=== PATIENT | male | born 1950 | race Caucasian/White ===

== ENCOUNTER 2017-07-12 08:34 | Day surgery (SDC) | payer MEDICARE ==
[2017-07-12] MEDS ORDERED: Lactated Ringers 1,000 ML IV SCH (08:45)
[2017-07-12] MEDS ORDERED: Midazolam 1 MG/ML 2 ML SDV IV ONE (09:56)
[2017-07-12] MEDS ORDERED: Propofol 200 MG/20 ML SDV IV ONE (09:56)
[2017-07-12] MEDS ORDERED: Simethicone Drops 40 MG/0.6 ML 30 ML Bottle ONE (10:08)
--- NOTE | 2017-07-12 10:38 | PCM.OPNOTE ---
- General Post-Op/Procedure Note Date of Surgery/Procedure: 07/12/17 Operative Procedure(s): c scope with bx hot loop snare and cold forceps Findings: transverse colon polyp rectal polyps x2 sigmoid diverticulosis Pre Op Diagnosis: rectal pain Post-Op Diagnosis: transverse colon polyp. rectal polyps x2. sigmoid diverticulosis Anesthesia Technique: MAC Primary Surgeon: Timothy Rob Anesthesia Provider: Kim Villalobos Pathology: transverse colon polyp rectal polyps x2 Complications: None Condition: Good Free Text/Narrative:: see dictation
[2017-07-12 11:19] VITALS: BP 117/59
--- NOTE | 2017-07-12 12:56 | OR ---
DATE OF OPERATION: 07/12/2017 SURGEON: Timothy Rob MD PROCEDURE PERFORMED: Colonoscopy with cold forceps and hot loop snare biopsy. PREOPERATIVE DIAGNOSIS: Perirectal discomfort. POSTOPERATIVE DIAGNOSIS: Sigmoid diverticulosis, transverse colon polyp, and rectal polyp x2. INDICATIONS FOR PROCEDURE: This is a 67-year-old white male who is referred with the above-mentioned complaints. He was offered and accepted colonoscopy as part of a workup. DESCRIPTION OF PROCEDURE: After an excellent IV sedation was administered, digital rectal exam was performed. No marked abnormality was noted. Flexible colonoscope using was inserted and advanced to the cecum without difficulty. The following findings were noted: Ascending colon, unremarkable. Transverse colon; at the proximal transverse colon a small polypoid lesion, biopsied with cold biopsy forceps and sent for permanent. Descending colon, unremarkable. Sigmoid, scattered diverticulosis. Rectum; polyps x2, and these were biopsied and retrieved with a hot loop snare biopsy. Colon was deflated as the scope was removed. The patient tolerated the procedure well, was taken to recovery room in good condition. /[id number] /KARLAL
== END 2017-07-12 11:23 | disposition home or self-care (01) ==
LOC: FB.SDS 08:34
PROVIDERS: ATTEND Surgery
DX: D12.3 Benign neoplasm of transverse colon (principal); K62.1 Rectal polyp; K57.30 Diverticulosis of large intestine without perforation or abscess without bleeding; E11.9 Type 2 diabetes mellitus without complications; I10 Essential (primary) hypertension; I25.10 Atherosclerotic heart disease of native coronary artery without angina pectoris; E78.5 Hyperlipidemia, unspecified; E66.9 Obesity, unspecified; F41.9 Anxiety disorder, unspecified; I25.2 Old myocardial infarction; Z79.84 Long term (current) use of oral hypoglycemic drugs; Z79.82 Long term (current) use of aspirin; Z79.899 Other long term (current) drug therapy; Z95.1 Presence of aortocoronary bypass graft; F17.210 Nicotine dependence, cigarettes, uncomplicated; Z68.37 Body mass index [BMI] 37.0-37.9, adult
CPT/HCPCS: 00811; 45380; 45385; 82962; 88305; 93005; A9270; J2250; J2704; J7120

== ENCOUNTER 2017-07-28 13:31 | Emergency (ER) | payer MEDICARE ==
--- NOTE | 2017-07-28 13:54 | EDM.PDOC ---
ED HPI GENERAL MEDICAL PROBLEM - General Stated Complaint: UA Time Seen by Provider: 07/28/17 13:31 Source of Information: Reports: Patient, Family History Limitations: Reports: No Limitations - History of Present Illness INITIAL COMMENTS - FREE TEXT/NARRATIVE: 67 y.o.w.m with a h/o bladder CA camr to the ed unable to void since last night. Davila cath was placed which showed bloody urine. Pt had a cystoscopy done in May at [facility] which "was nl" No N/v/D pt smokes and drinks ETOH. No SOB. no other acute medical issues. BP 132/62 pulse 73 RR 18 Pulse ox 96% on RA temp 36.9 Onset Date: 07/28/17 Onset Time: 07:00 Duration: Hour(s): Location: Reports: Pelvis Quality: Reports: Ache Severity: Moderate Improves with: Reports: Rest Worsens with: Reports: Movement Context: Reports: Other (h/o bladder CA) suprapubic Pain Score (Numeric/FACES): 10 - Related Data Allergies Allergy/AdvReac Type Severity Reaction Status Date / Time No Known Allergies Allergy Verified 07/28/17 14:02 Home Meds: Home Meds Carvedilol 25 mg PO BID 04/12/16 [History] Citalopram [Citalopram HBr] 40 mg PO DAILY 04/12/16 [History] Lisinopril 5 mg PO BID 04/12/16 [History] atorvaSTATin [Lipitor] 20 mg PO DAILY 04/12/16 [History] glipiZIDE [Glipizide] 5 mg PO BIDMEALS 04/12/16 [History] metFORMIN [Glucophage] 500 mg PO BID 04/12/16 [History] Aspirin [Ecotrin] 81 mg PO DAILY 07/11/17 [History] traMADol Hcl/Acetaminophen [Ultracet Tablet] 1 - 2 each PO Q4H PRN 07/12/17 [ History] Oxybutynin 5 mg PO DAILY #10 tab 07/28/17 [Rx] Past Medical History HEENT History: Reports: Cataract, Impaired Vision Cardiovascular History: Reports: Bypass, CAD, High Cholesterol, Hypertension, [place] , Other (See Below) Other Cardiovascular History: states that he had 3 heart attacks, HTN, ischemic cardiomyopathy Respiratory History: Reports: None Gastrointestinal History: Reports: None Genitourinary History: Reports: Renal Disease, Other (See Below) Other Genitourinary History: BLADDER CA Musculoskeletal History: Reports: Fracture Neurological History: Reports: None Psychiatric History: Reports: Anxiety Endocrine/Metabolic History: Reports: Diabetes, Type II, Obesity/BMI 30+ Hematologic History: Reports: None Immunologic History: Reports: None Oncologic (Cancer) History: Reports: Bladder Dermatologic History: Reports: None - Past Surgical History Head Surgeries/Procedures: Reports: None HEENT Surgical History: Reports: Oral Surgery Other HEENT Surgeries/Procedures: WISDOM TEETH EXTRACTION Cardiovascular Surgical History: Reports: Coronary Artery Bypass Other Cardiovascular Surgeries/Procedures: CARDIAC CATH Respiratory Surgical History: Reports: None GI Surgical History: Reports: Colonoscopy Endocrine Surgical History: Reports: None Neurological Surgical History: Reports: None Musculoskeletal Surgical History: Reports: None Oncologic Surgical History: Reports: Other (See Below) Other Oncologic Surgeries/Procedures: BLADDER TUMOR REMOVED. Dermatological Surgical History: Reports: None Social & Family History - Family History Family Medical History: Noncontributory - Tobacco Use Smoking Status *Q: Current Every Day Smoker Years of Tobacco use: 1 Packs/Tins Daily: 1 Used Tobacco, but Quit: No Second Hand Smoke Exposure: No - Caffeine Use Caffeine Use: Reports: Coffee Caffeine Use Comment: 2 cups per day - Alcohol Use Days Per Week of Alcohol Use: 1 Number of Drinks Per Day: 6 Total Drinks Per Week: 6 - Recreational Drug Use Recreational Drug Use: No ED ROS GENERAL - Review of Systems Review Of Systems: See Below Constitutional: Reports: No Symptoms HEENT: Reports: No Symptoms Respiratory: Reports: No Symptoms Cardiovascular: Reports: No Symptoms Endocrine: Reports: No Symptoms GI/Abdominal: Reports: Abdominal Pain : Reports: Hematuria, Urinary Retention Musculoskeletal: Reports: No Symptoms Skin: Reports: No Symptoms Neurological: Reports: No Symptoms Psychiatric: Reports: No Symptoms Hematologic/Lymphatic: Reports: No Symptoms Immunologic: Reports: No Symptoms ED EXAM, RENAL/ - Physical Exam Exam: See Below Exam Limited By: No Limitations General Appearance: Alert, WD/WN, Obese Eye Exam: Bilateral Eye: Normal Inspection Ears: Normal External Exam Nose: Normal Inspection Throat/Mouth: Normal Inspection, Normal Lips Head: Atraumatic, Normocephalic Neck: Normal Inspection Respiratory/Chest: No Respiratory Distress, Rhonchi, Wheezing Cardiovascular: Normal Peripheral Pulses, Regular Rate, Rhythm GI/Abdominal: Tender (Male) Exam: Deferred Rectal (Males) Exam: Deferred Back Exam: Normal Inspection, Full Range of Motion Extremities: Normal Inspection, Normal Range of Motion, Non-Tender Neurological: Alert, Oriented, CN II-XII Intact, Normal Cognition, Normal Gait Psychiatric: Normal Affect, Normal Mood Skin Exam: Warm, Dry, Intact, Normal Color, No Rash Lymphatic: No Adenopathy Course - Vital Signs Text/Narrative:: 67 y.o.w.m with a h/o bladder CA camr to the ed unable to void since last night. Davila cath was placed which showed bloody urine. Pt had a cystoscopy done in May at [facility] which "was nl" No N/v/D pt smokes and drinks ETOH. No SOB. no other acute medical issues. BP 132/62 pulse 73 RR 18 Pulse ox 96% on RA temp 36.9 PE: WNWD W M with bladder distension Imaging: CT abd/pelvis: R renal cyst, Blood clot in bladder, prev bladder tumor labs: Nl WBC HGB was 10.5 Cr 1.4 Bun 25 GFR 50 UA: Hematuria, gross Impression: Gross hematuria, H/O Bladder CA, H/O NIDDM Tx: 3way cath to irrigate bladder, Oxybutinin, Pt refuse a Duoneb 2.[address] Jesus, Urology, [facility]: Irrigate bladder with 3 way catheter Plan: D/C with instructions Last Recorded V/S: Last Vital Signs Temp 36.9 C 07/28/17 13:45 Pulse 95 07/28/17 13:45 Resp 16 07/28/17 16:30 BP 143/70 H 07/28/17 16:30 Pulse Ox 98 07/28/17 16:30 - Orders/Labs/Meds Labs: Laboratory Tests 07/28/17 07/28/17 07/28/17 Range/Units 13:58 14:10 14:10 WBC 9.3 (4.5-12.0) X10-3/uL RBC 3.77 L (4.30-5.75) x10(6)uL Hgb 10.8 L (11.5-15.5) g/dL Hct 32.3 (30.0-51.3) % MCV 85.8 (80-96) fL MCH 28.8 (27.7-33.6) pg MCHC 33.5 (32.2-35.4) g/dL RDW 13.7 (11.5-15.5) % Plt Count 242 (125-369) X10(3)uL MPV 9.1 (7.4-10.4) fL Neut % (Auto) 71.3 (46-82) % Lymph % (Auto) 17.3 (13-37) % [place] % (Auto) 7.7 (4-12) % Eos % (Auto) 3 (1.0-5.0) % Baso % (Auto) 1 (0-2) % Neut # (Auto) 6.6 (1.6-8.3) # Lymph # (Auto) 1.6 (0.6-5.0) # [place] # (Auto) 0.7 (0.0-1.3) # Eos # (Auto) 0.3 (0.0-0.8) # Baso # (Auto) 0.1 (0.0-0.2) # PT 11.0 (8.7-11.1) INR 1.09 (0.89-1.13) Sodium (135-145) mmol/L Potassium (3.5-5.3) mmol/L Chloride (100-110) mmol/L Carbon Dioxide (21-32) mmol/L BUN (7-18) mg/dL Creatinine (0.70-1.30) mg/dL Est Cr Clr Drug Dosing mL/min Estimated GFR (MDRD) (>60) BUN/Creatinine Ratio (9-20) Glucose (80-116) mg/dL Calcium (8.6-10.2) mg/dL Urine Color Red (YELLOW) Urine Appearance Slightly cloudy (CLEAR) Urine pH 6.5 (5.0-6.5) Ur Specific [place] 1.015 (1.010-1.025) Urine Protein 100 H (NEGATIVE) mg/dL Urine Glucose (UA) Normal (NEGATIVE) mg/dL Urine Ketones 15 H (NEGATIVE) mg/dL Urine Occult Blood Large H (NEGATIVE) Urine Nitrite Positive H (NEGATIVE) Urine Bilirubin Negative (NEGATIVE) Urine Urobilinogen Normal (NEGATIVE) mg/dL Ur Leukocyte Esterase Negative (NEGATIVE) Urine RBC Packed H (0) Urine WBC 0-5 (0) Ur Squamous Epith Cells Rare (NS,R,O) Urine Bacteria Few H (NS) 07/28/17 Range/Units 14:10 WBC (4.5-12.0) X10-3/uL RBC (4.30-5.75) x10(6)uL Hgb (11.5-15.5) g/dL Hct (30.0-51.3) % MCV (80-96) fL MCH (27.7-33.6) pg MCHC (32.2-35.4) g/dL RDW (11.5-15.5) % Plt Count (125-369) X10(3)uL MPV (7.4-10.4) fL Neut % (Auto) (46-82) % Lymph % (Auto) (13-37) % [place] % (Auto) (4-12) % Eos % (Auto) (1.0-5.0) % Baso % (Auto) (0-2) % Neut # (Auto) (1.6-8.3) # Lymph # (Auto) (0.6-5.0) # [place] # (Auto) (0.0-1.3) # Eos # (Auto) (0.0-0.8) # Baso # (Auto) (0.0-0.2) # PT (8.7-11.1) INR (0.89-1.13) Sodium 142 (135-145) mmol/L Potassium 4.8 (3.5-5.3) mmol/L Chloride 106 (100-110) mmol/L Carbon Dioxide 27 (21-32) mmol/L BUN 23 H (7-18) mg/dL Creatinine 1.4 H (0.70-1.30) mg/dL Est Cr Clr Drug Dosing 50.61 mL/min Estimated GFR (MDRD) 50 L (>60) BUN/Creatinine Ratio 16.4 (9-20) Glucose 226 H (80-116) mg/dL Calcium 9.3 (8.6-10.2) mg/dL Urine Color (YELLOW) Urine Appearance (CLEAR) Urine pH (5.0-6.5) Ur Specific [place] (1.010-1.025) Urine Protein (NEGATIVE) mg/dL Urine Glucose (UA) (NEGATIVE) mg/dL Urine Ketones (NEGATIVE) mg/dL Urine Occult Blood (NEGATIVE) Urine Nitrite (NEGATIVE) Urine Bilirubin (NEGATIVE) Urine Urobilinogen (NEGATIVE) mg/dL Ur Leukocyte Esterase (NEGATIVE) Urine RBC (0) Urine WBC (0) Ur Squamous Epith Cells (NS,R,O) Urine Bacteria (NS) Meds: Medications Discontinued Medications Generic Name Dose Route Start Last Admin Trade Name Freq PRN Reason Stop Dose Admin Oxybutynin Chloride 5 mg 07/28/17 15:53 07/28/17 16:15 Oxybutynin Er PO 07/28/17 15:54 5 mg ONETIME ONE Administration Departure - Departure Time of Disposition: 15:57 Disposition: Home, Self-Care 01 Condition: Good Clinical Impression: Hematuria Qualifiers: Hematuria type: gross Qualified Code(s): R31.0 - Gross hematuria - Discharge Information Prescriptions: Oxybutynin 5 mg PO DAILY #10 tab Instructions: Davila Catheter Care, Adult Referrals: Tahir iBshop MD [Primary Care Provider] - Forms: ED Department Discharge Additional Instructions: Please increase water intake, please the the meds as recommended, please f/u as scheduled, please come back if your symptoms get worse acutely.
--- NOTE | 2017-07-28 15:37 | CT ---
INDICATION: Blood in urine. Pelvic pain. CT ABDOMEN AND PELVIS WITHOUT CONTRAST: Spiral 1.25-mm axial sections were obtained through the abdomen and pelvis with renal calculus protocol - no contrast - and sagittal and coronal reconstructions, 07/28/2017, and compared with 07/25/2014. Total Exam DLP = 2353.97 mGy-cm. The lower lung mendoza and pleural spaces visualized appeared normal. The heart did not appear enlarged. Calcifications are noted in the abdominal aorta, left renal artery, superior mesenteric artery, iliac, and femoral arteries. Low-density lesions are noted, the largest is on the right off the lateral aspect of the mid pole of the right kidney, measuring about 5 cm. Fat stranding is noted in that area off the lower pole of the right kidney, which may be on the basis of previous pyelonephritis with some cortical scarring. Cortical scarring is also suggested on the left, with fat stranding at the left kidney. The right adrenal gland was unremarkable. On the left, there is an appearance of a low-density mass, likely representing an adrenal adenoma of small size. This appearance is unchanged from the previous examination, which essentially confirms a benign origin. No definite solid mass lesions were identified. However, no IV contrast was utilized for this examination, which limits that aspect of the examination. No renal calcinosis was identified. No evidence of obstructive uropathy was seen. The spleen was unremarkable. The liver had a fairly normal appearance. The gallbladder was contracted with no demonstrated calculi. The pancreas appeared normal. The common bile duct appeared normal in caliber in the head of the pancreas. No retroperitoneal mass lesions were identified. There is a small abdominal aortic aneurysm well below the renal arteries, measuring approximately 36 mm, which is increased in size compared with 32 mm on the previous study. There is an irregular shaped density noted in the urinary bladder along with a Davila catheter. This density may represent a blood clot. There does appear to be some mild thickening of the urinary bladder wall, which may be on the basis of cystitis. The prostate is enlarged, measuring 55 x 46 x 60 mm craniocaudad, transverse, and AP diameters. Degenerative changes and disk disease are noted at L5-S1, as previously. No additional organomegaly, mass lesions, or free fluid collections were identified in the abdomen or pelvis. IMPRESSION: 1. Thickened wall of the urinary bladder with prostatic enlargement and what appears to be a blood clot in the urinary bladder. Further evaluation of the urinary bladder may be warranted, as well as of the prostate. Davila catheter is noted in place. 2. ASD. 3. DJD and disk disease L5-S1. 4. Very minimal abdominal aortic aneurysm, although slightly increased in size to 35 mm, compared with 32 mm on the previous study in the lower middle abdominal aorta. 5. Renal cysts fairly stable, largest on the right, measuring approximately 55 mm, only increased in size approximately 3 mm from the previous study. 6. No definite metastatic disease identified. However, with the apparent blood clot in the urinary bladder, would have to question recurrence of a bladder tumor in that area and direct visualization may be warranted. CT PELVIS: Examination of the pelvis was obtained by CT, as noted above. No evidence of bowel obstruction was identified. There is what appears to be a blood clot in the urinary bladder. This should be correlated clinically, and with this patient's history, direct visualization may be warranted, as no evidence of obstructive uropathy or renal calcinosis could be identified. Report was given by phone to Dr. Vincent at 1453 hours, 07/28/2017. OLIVA
[2017-07-28] MEDS ORDERED: Oxybutynin 5 MG Tab.ER PO ONE (15:53)
[2017-07-28 16:40] VITALS: BP 143/70
== END 2017-07-28 16:30 | disposition home or self-care (01) ==
LOC: FB.ED 13:31
DX: R31.0 Gross hematuria (principal); I10 Essential (primary) hypertension; E11.9 Type 2 diabetes mellitus without complications; E78.00 Pure hypercholesterolemia, unspecified; C67.9 Malignant neoplasm of bladder, unspecified; F17.210 Nicotine dependence, cigarettes, uncomplicated; Z79.82 Long term (current) use of aspirin; Z79.899 Other long term (current) drug therapy
CPT/HCPCS: 36415; 51702; 74176; 80048; 81001; 85025; 85610; 99283; 99284; A9270-GY

== ENCOUNTER 2017-09-09 05:58 | Emergency (ER) | payer MEDICARE ==
--- NOTE | 2017-09-09 06:43 | EDM.PDOC ---
ED HPI GENERAL MEDICAL PROBLEM - General Chief Complaint: Genitourinary Problem Stated Complaint: Urinary Retention Time Seen by Provider: 09/09/17 06:10 Source of Information: Reports: Patient History Limitations: Reports: No Limitations - History of Present Illness INITIAL COMMENTS - FREE TEXT/NARRATIVE: c/o urinary obstruction pt with a lot of pressure, last void 1p, over 550 cc bloody urine obtained with cath, pt felt much better no f/c/d, no n/v, good appetite had indwelling gracia until 1w ago, did okay until this past day has bladder cancer x 10y, multiple procedures in past 10y, now told he will need 90d of RT, followed by open resection of bladder and prostate by urologist Dr Jesus in [place] in 5-6m h/o NH x 3 in past 10y, no CV sxs today former smoker pt states 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, had driven a [employer] - Related Data Allergies Allergy/AdvReac Type Severity Reaction Status Date / Time No Known Allergies Allergy Verified 09/09/17 07:10 Home Meds: Home Meds Carvedilol 25 mg PO BID 04/12/16 [History] Citalopram [Citalopram HBr] 40 mg PO DAILY 04/12/16 [History] atorvaSTATin [Lipitor] 20 mg PO DAILY 04/12/16 [History] glipiZIDE [Glipizide] 5 mg PO BIDMEALS 04/12/16 [History] metFORMIN [Glucophage] 500 mg PO BID 04/12/16 [History] Levofloxacin 500 mg PO DAILY #5 tablet 09/09/17 [Rx] Past Medical History HEENT History: Reports: Cataract, Impaired Vision Cardiovascular History: Reports: Bypass, CAD, High Cholesterol, Hypertension, [place] , Other (See Below) Other Cardiovascular History: states that he had 3 heart attacks, HTN, ischemic cardiomyopathy Respiratory History: Reports: None Gastrointestinal History: Reports: None Genitourinary History: Reports: Renal Disease, Other (See Below) Other Genitourinary History: BLADDER CA Musculoskeletal History: Reports: Fracture Neurological History: Reports: None Psychiatric History: Reports: Anxiety Endocrine/Metabolic History: Reports: Diabetes, Type II, Obesity/BMI 30+ Hematologic History: Reports: None Immunologic History: Reports: None Oncologic (Cancer) History: Reports: Bladder Dermatologic History: Reports: None - Past Surgical History Head Surgeries/Procedures: Reports: None HEENT Surgical History: Reports: Oral Surgery Other HEENT Surgeries/Procedures: WISDOM TEETH EXTRACTION Cardiovascular Surgical History: Reports: Coronary Artery Bypass Other Cardiovascular Surgeries/Procedures: CARDIAC CATH Respiratory Surgical History: Reports: None GI Surgical History: Reports: Colonoscopy Endocrine Surgical History: Reports: None Neurological Surgical History: Reports: None Musculoskeletal Surgical History: Reports: None Oncologic Surgical History: Reports: Other (See Below) Other Oncologic Surgeries/Procedures: BLADDER TUMOR REMOVED. Dermatological Surgical History: Reports: None Social & Family History - Family History Family Medical History: Noncontributory - Tobacco Use Smoking Status *Q: Current Every Day Smoker Years of Tobacco use: 1 Packs/Tins Daily: 1 Used Tobacco, but Quit: No Second Hand Smoke Exposure: No - Caffeine Use Caffeine Use: Reports: Coffee Caffeine Use Comment: 2 cups per day - Alcohol Use Days Per Week of Alcohol Use: 1 Number of Drinks Per Day: 6 Total Drinks Per Week: 6 - Recreational Drug Use Recreational Drug Use: No ED ROS GENERAL - Review of Systems Review Of Systems: See Below Constitutional: Reports: No Symptoms HEENT: Reports: No Symptoms Respiratory: Reports: No Symptoms Cardiovascular: Reports: No Symptoms Endocrine: Reports: No Symptoms GI/Abdominal: Reports: Abdominal Pain : Reports: No Symptoms Musculoskeletal: Reports: No Symptoms Skin: Reports: No Symptoms Neurological: Reports: No Symptoms Psychiatric: Reports: No Symptoms Hematologic/Lymphatic: Reports: No Symptoms Immunologic: Reports: No Symptoms ED EXAM, RENAL/ - Physical Exam Exam: See Below Exam Limited By: No Limitations General Appearance: Alert, WD/WN, No Apparent Distress Throat/Mouth: Normal Inspection Head: Atraumatic, Normocephalic Neck: Normal Inspection, Supple, Non-Tender, Full Range of Motion Respiratory/Chest: No Respiratory Distress, Lungs Clear, Normal Breath Sounds, No Accessory Muscle Use, Chest Non-Tender Cardiovascular: Normal Peripheral Pulses, Regular Rate, Rhythm, No Edema, No Gallop, No Murmur, No Rub GI/Abdominal: Normal Bowel Sounds, Soft, No Organomegaly, No Distention, No Mass , Other (mild residual tender across lower abd after gracia placed) Back Exam: Normal Inspection Extremities: Normal Inspection, Normal Range of Motion, Non-Tender, No Pedal Edema Neurological: Alert, Oriented, CN II-XII Intact, Normal Cognition, No Motor/ Sensory Deficits Psychiatric: Normal Affect, Normal Mood Skin Exam: Warm, Dry, Intact, Normal Color, No Rash Lymphatic: No Adenopathy Course - Vital Signs Last Recorded V/S: Last Vital Signs Temp 36.2 C 09/09/17 06:05 Pulse 109 H 09/09/17 06:05 Resp BP 158/70 H 09/09/17 06:05 Pulse Ox - Orders/Labs/Meds Orders: Active Orders 24 hr Category Date Time Status Gracia Catheter Insertion [Insert Urinary Catheter] [OM. Care 09/09/17 06:15 Ordered PC] Q24H Urinary Catheter Assessment [RC] QSHIFT Care 09/09/17 06:15 Active CULTURE URINE [RM] Stat Lab 09/09/17 06:15 Ordered Labs: Laboratory Tests 09/09/17 Range/Units 06:15 Urine Color Brown (YELLOW) Urine Appearance Cloudy (CLEAR) Urine pH 5.0 (5.0-6.5) Ur Specific [place] 1.020 (1.010-1.025) Urine Protein 500 H (NEGATIVE) mg/dL Urine Glucose (UA) Normal (NEGATIVE) mg/dL Urine Ketones Negative (NEGATIVE) mg/dL Urine Occult Blood Large H (NEGATIVE) Urine Nitrite Positive H (NEGATIVE) Urine Bilirubin Small H (NEGATIVE) Urine Urobilinogen 4 H (NEGATIVE) mg/dL Ur Leukocyte Esterase Small H (NEGATIVE) Urine RBC >100 H (0) Urine WBC 5-10 (0) Ur Squamous Epith Cells Few H (NS,R,O) Urine Bacteria Moderate H (NS) - Re-Assessments/Exams Free Text/Narrative Re-Assessment/Exam: 09/09/17 07:07 pt reports he last took an atbx daily x 5d for a bladder infection, however there are no UC in [facility], a call to [facility] placed and there was only a UC from 06-28-17 with no growth, there were no positive UC will tx with levo x 5d Departure - Departure Time of Disposition: 07:09 Disposition: Home, Self-Care 01 Condition: Good Clinical Impression: Urinary obstruction, Urinary tract infection, Gross hematuria, Bladder cancer - Discharge Information Prescriptions: Levofloxacin 500 mg PO DAILY #5 tablet Instructions: Urinary Tract Infection, Adult, Acute Urinary Retention, Male Referrals: Tahir Bishop MD [Primary Care Provider] - Forms: ED Department Discharge Additional Instructions: For infection, take levofloxacin 500 mg 1 tab daily for 5 days. Use gracia leg bag as you have done before. Call Dr Jesus in 2 days on Monday for further instructions. Call your Physician or Return to Emergency Department if: * Your condition worsens in any way. * You develop fever greater than 100.4. * You have vomitting that does not stop with medications. * You have pain that is not controlled with medications. - My Orders Last 24 Hours: My Active Orders 09/09/17 06:15 Gracia Catheter Insertion [Insert Urinary Catheter] [OM.PC] Q24H Urinary Catheter Assessment [RC] QSHIFT CULTURE URINE [RM] Stat - Assessment/Plan Last 24 Hours: My Active Orders 09/09/17 06:15 Gracia Catheter Insertion [Insert Urinary Catheter] [OM.PC] Q24H Urinary Catheter Assessment [RC] QSHIFT CULTURE URINE [RM] Stat
[2017-09-09 07:27] VITALS: BP 143/66
== END 2017-09-09 07:30 | disposition home or self-care (01) ==
LOC: FB.ED 05:58
DX: C67.9 Malignant neoplasm of bladder, unspecified (principal); N39.0 Urinary tract infection, site not specified; N13.9 Obstructive and reflux uropathy, unspecified; I25.810 Atherosclerosis of coronary artery bypass graft(s) without angina pectoris; E78.00 Pure hypercholesterolemia, unspecified; I10 Essential (primary) hypertension; I25.2 Old myocardial infarction; Z95.5 Presence of coronary angioplasty implant and graft; Z79.899 Other long term (current) drug therapy; Z79.84 Long term (current) use of oral hypoglycemic drugs; E11.9 Type 2 diabetes mellitus without complications; F17.210 Nicotine dependence, cigarettes, uncomplicated; E66.9 Obesity, unspecified; Z68.37 Body mass index [BMI] 37.0-37.9, adult
CPT/HCPCS: 51702; 81001; 87086; 99283

== ENCOUNTER 2017-09-27 18:39 | Emergency (ER) | payer MEDICARE ==
[2017-09-27 19:32] VITALS: BP 132/71
--- NOTE | 2017-09-28 05:17 | ER ---
DATE SEEN: 09/27/2017 CHIEF COMPLAINT: Urinary obstruction. HISTORY OF PRESENT ILLNESS: This is a 67-year-old male with urinary obstruction, complains of pain and discomfort and inability to urinate. 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 The last one being last week and he is due for another one next week. He has noted gross hematuria on the last day. No fever. No chills. PAST MEDICAL HISTORY: He has a history of coronary artery disease, cardiomyopathy, type 2 diabetes, anxiety, obesity. SOCIAL HISTORY: Previous smoker. MEDICATIONS: Reviewed. ALLERGIES: Reviewed. PHYSICAL EXAMINATION: GENERAL: Not in any cardiopulmonary distress. VITAL SIGNS: His blood pressure is normal, pulse is 82, temperature 98.0. ABDOMEN: Soft, benign. CHEST: Clear. SKIN: Pallor. LABORATORY DATA: White cell count is 1.2, hemoglobin 8.5, and electrolytes are normal. Creatinine is 1.8. IMPRESSION: Urinary obstruction with gross hematuria and blood clots. PLAN: I initially tried just a Davila catheter, but there were still blood clots. A 3-way catheter was attempted but failed. I spoke with Dr. Mills and also the ER physician and we will send the patient to [facility] for further intervention. I saw him at first visit at around 1955 hours and discharged him at 2130 hours. /[id number] DAT/MYRANDA
== END 2017-09-27 21:46 ==
LOC: FB.ED 18:39
DX: N13.9 Obstructive and reflux uropathy, unspecified (principal); E66.9 Obesity, unspecified; E11.9 Type 2 diabetes mellitus without complications
CPT/HCPCS: 36415; 51702; 80048; 85025; 99283; 99284

== ENCOUNTER 2017-10-14 09:29 | Emergency (ER) | payer MEDICARE ==
--- NOTE | 2017-10-14 10:01 | EDM.PDOC ---
ED HPI GENERAL MEDICAL PROBLEM - General Chief Complaint: Respiratory Problem Stated Complaint: sob Time Seen by Provider: 10/14/17 09:54 Source of Information: Reports: Patient History Limitations: Reports: No Limitations - History of Present Illness INITIAL COMMENTS - FREE TEXT/NARRATIVE: Complains of shortness of breath since last night, denies chest pain. Patient believes may be due to receiving IVF 10/11, 10/12 and 10/13/17 secondary to elevated potassium. Currently receiving chemotherapy for bladder cancer (last ). +h/o CAD, s/p CABG 9yrs ago. No h/o chronic lung disease. Onset: Other (last night) Duration: Day(s): (2) Quality: Reports: Other (No pain) Severity: Moderate Improves with: Reports: None Worsens with: Reports: None Associated Symptoms: Reports: No Other Symptoms - Related Data Allergies Allergy/AdvReac Type Severity Reaction Status Date / Time No Known Allergies Allergy Verified 10/14/17 09:42 Home Meds: Home Meds Carvedilol 25 mg PO BID 04/12/16 [History] Citalopram [Citalopram HBr] 40 mg PO DAILY 04/12/16 [History] atorvaSTATin [Lipitor] 20 mg PO DAILY 04/12/16 [History] glipiZIDE [Glipizide] 5 mg PO BIDMEALS 04/12/16 [History] metFORMIN [Glucophage] 500 mg PO BID 04/12/16 [History] Past Medical History HEENT History: Reports: Cataract, Impaired Vision Cardiovascular History: Reports: Bypass, CAD, High Cholesterol, Hypertension, [place] , Other (See Below) Other Cardiovascular History: states that he had 3 heart attacks, HTN, ischemic cardiomyopathy Respiratory History: Reports: None Gastrointestinal History: Reports: None Genitourinary History: Reports: Prostate Disorder, Renal Disease, Other (See Below) Other Genitourinary History: BLADDER CA Musculoskeletal History: Reports: Fracture Neurological History: Reports: None Psychiatric History: Reports: Anxiety Endocrine/Metabolic History: Reports: Diabetes, Type II, Obesity/BMI 30+ Hematologic History: Reports: None Immunologic History: Reports: None Oncologic (Cancer) History: Reports: Bladder, Prostate Dermatologic History: Reports: None - Past Surgical History Head Surgeries/Procedures: Reports: None HEENT Surgical History: Reports: Oral Surgery Other HEENT Surgeries/Procedures: WISDOM TEETH EXTRACTION Cardiovascular Surgical History: Reports: Coronary Artery Bypass Other Cardiovascular Surgeries/Procedures: CARDIAC CATH Respiratory Surgical History: Reports: None GI Surgical History: Reports: Colonoscopy Male Surgical History: Reports: Prostate Biopsy Endocrine Surgical History: Reports: None Neurological Surgical History: Reports: None Musculoskeletal Surgical History: Reports: None Oncologic Surgical History: Reports: Other (See Below) Other Oncologic Surgeries/Procedures: BLADDER TUMOR REMOVED. Dermatological Surgical History: Reports: None Social & Family History - Family History Family Medical History: Noncontributory - Tobacco Use Smoking Status *Q: Former Smoker Years of Tobacco use: 35 Packs/Tins Daily: 1 Used Tobacco, but Quit: Yes Month/Year Tobacco Last Used: 09/2017 Second Hand Smoke Exposure: No - Caffeine Use Caffeine Use: Reports: Soda Caffeine Use Comment: 2 cups per day - Alcohol Use Days Per Week of Alcohol Use: 1 Number of Drinks Per Day: 6 Total Drinks Per Week: 6 - Recreational Drug Use Recreational Drug Use: No ED ROS GENERAL - Review of Systems Review Of Systems: See Below Constitutional: Reports: No Symptoms HEENT: Reports: No Symptoms Respiratory: Reports: Shortness of Breath Cardiovascular: Reports: No Symptoms Endocrine: Reports: No Symptoms GI/Abdominal: Reports: No Symptoms : Reports: No Symptoms Musculoskeletal: Reports: No Symptoms Skin: Reports: No Symptoms Neurological: Reports: No Symptoms Psychiatric: Reports: No Symptoms Hematologic/Lymphatic: Reports: No Symptoms Immunologic: Reports: No Symptoms ED EXAM, GENERAL - Physical Exam Exam: See Below Exam Limited By: No Limitations General Appearance: Alert, WD/WN, No Apparent Distress Nose: Normal Inspection Throat/Mouth: Normal Inspection, Normal Voice, No Airway Compromise Head: Atraumatic, Normocephalic Neck: Normal Inspection, Supple, Full Range of Motion Respiratory/Chest: No Respiratory Distress, No Accessory Muscle Use, Rhonchi, Wheezing (few expiratory) Cardiovascular: Regular Rate, Rhythm, Other (trace pedal edema) GI/Abdominal: No Distention Extremities: Normal Inspection, Normal Range of Motion Neurological: Alert, Oriented, Normal Cognition Psychiatric: Normal Affect, Normal Mood Skin Exam: Warm, Dry, Intact EKG INTERPRETATION EKG Date: 10/14/17 Time: 10:00 Rhythm: NSR Rate (Beats/Min): 80 EKG Interpretation Comments: No significant changes from 07/12/17 Course - Vital Signs Text/Narrative:: Sa02 improved from 89% RA to 99% RA after Albuterol 2.5mg Nebulizer treatment. Last Recorded V/S: Last Vital Signs Temp 36.6 C 10/14/17 09:30 Pulse 83 10/14/17 09:30 Resp 22 H 10/14/17 09:30 BP 155/80 H 10/14/17 09:30 Pulse Ox 98 10/14/17 09:30 - Orders/Labs/Meds Orders: Active Orders 24 hr Category Date Time Status EKG Documentation Completion [RC] ASDIRECTED Care 10/14/17 09:51 Active RT Aerosol Therapy [RC] ASDIRECTED Care 10/14/17 10:55 Active CXR [Chest 1V Frontal] [CR] Stat Exams 10/14/17 09:49 Taken Chest wo Cont [CT] Stat Exams 10/14/17 10:53 Taken CULTURE BLOOD [BC] Urgent Lab 10/14/17 11:15 Received CULTURE BLOOD [BC] Urgent Lab 10/14/17 11:20 Received UA W/MICROSCOPIC [URIN] Stat Lab 10/14/17 11:01 Ordered Blood Culture x2 Reflex Set [OM.PC] Urgent Oth 10/14/17 10:49 Ordered EKG 12 Lead [EK] Stat Ther 10/14/17 09:51 Ordered Labs: Laboratory Tests 10/14/17 10/14/17 10/14/17 Range/Units 10:05 10:05 10:05 WBC 12.6 H (4.5-12.0) X10-3/uL RBC 3.12 L (4.30-5.75) x10(6)uL Hgb 9.3 L (11.5-15.5) g/dL Hct 27.6 L (30.0-51.3) % MCV 88.4 (80-96) fL MCH 29.8 (27.7-33.6) pg MCHC 33.8 (32.2-35.4) g/dL RDW 15.2 (11.5-15.5) % Plt Count 460 H (125-369) X10(3)uL MPV 8.9 (7.4-10.4) fL Add Manual Diff Yes Neutrophils % (Manual) 90 H (46-82) % Lymphocytes % (Manual) 7 L (13-37) % Monocytes % (Manual) 3 L (4-12) % D-Dimer, Quantitative (100-400) ng/mL Sodium 142 (135-145) mmol/L Potassium 5.3 (3.5-5.3) mmol/L Chloride 108 (100-110) mmol/L Carbon Dioxide 24 (21-32) mmol/L BUN 53 H D (7-18) mg/dL Creatinine 2.1 H* (0.70-1.30) mg/dL Est Cr Clr Drug Dosing 34.28 mL/min Estimated GFR (MDRD) 31 L (>60) BUN/Creatinine Ratio 25.2 H (9-20) Glucose 100 D (80-116) mg/dL Lactic Acid (0.4-2.2) mmol/L Calcium 8.4 L (8.6-10.2) mg/dL Total Bilirubin 0.3 (0.1-1.3) mg/dL AST 13 (5-25) IU/L ALT 25 (12-36) U/L Alkaline Phosphatase 51 L (56-112) IU/L Troponin I < 0.017 L (<0.017-0.056) ng/mL NT-Pro-B Natriuret Pep 8007 H* (<=125) pg/mL Total Protein 6.7 (6.0-8.0) g/dL Albumin 3.3 (3.2-4.6) g/dL Globulin 3.4 g/dL Albumin/Globulin Ratio 1.0 Urine Color (YELLOW) Urine Appearance (CLEAR) Urine pH (5.0-6.5) Ur Specific [place] (1.010-1.025) Urine Protein (NEGATIVE) mg/dL Urine Glucose (UA) (NEGATIVE) mg/dL Urine Ketones (NEGATIVE) mg/dL Urine Occult Blood (NEGATIVE) Urine Nitrite (NEGATIVE) Urine Bilirubin (NEGATIVE) Urine Urobilinogen (NEGATIVE) mg/dL Ur Leukocyte Esterase (NEGATIVE) Urine RBC (0) Urine WBC (0) Ur Squamous Epith Cells (NS,R,O) Urine Bacteria (NS) 10/14/17 10/14/17 10/14/17 Range/Units 10:05 10:05 11:01 WBC (4.5-12.0) X10-3/uL RBC (4.30-5.75) x10(6)uL Hgb (11.5-15.5) g/dL Hct (30.0-51.3) % MCV (80-96) fL MCH (27.7-33.6) pg MCHC (32.2-35.4) g/dL RDW (11.5-15.5) % Plt Count (125-369) X10(3)uL MPV (7.4-10.4) fL Add Manual Diff Neutrophils % (Manual) (46-82) % Lymphocytes % (Manual) (13-37) % Monocytes % (Manual) (4-12) % D-Dimer, Quantitative 301 (100-400) ng/mL Sodium (135-145) mmol/L Potassium (3.5-5.3) mmol/L Chloride (100-110) mmol/L Carbon Dioxide (21-32) mmol/L BUN (7-18) mg/dL Creatinine (0.70-1.30) mg/dL Est Cr Clr Drug Dosing mL/min Estimated GFR (MDRD) (>60) BUN/Creatinine Ratio (9-20) Glucose (80-116) mg/dL Lactic Acid 1.0 (0.4-2.2) mmol/L Calcium (8.6-10.2) mg/dL Total Bilirubin (0.1-1.3) mg/dL AST (5-25) IU/L ALT (12-36) U/L Alkaline Phosphatase (56-112) IU/L Troponin I (<0.017-0.056) ng/mL NT-Pro-B Natriuret Pep (<=125) pg/mL Total Protein (6.0-8.0) g/dL Albumin (3.2-4.6) g/dL Globulin g/dL Albumin/Globulin Ratio Urine Color Yellow (YELLOW) Urine Appearance Slightly cloudy (CLEAR) Urine pH 5.0 (5.0-6.5) Ur Specific [place] 1.020 (1.010-1.025) Urine Protein Negative (NEGATIVE) mg/dL Urine Glucose (UA) Normal (NEGATIVE) mg/dL Urine Ketones Negative (NEGATIVE) mg/dL Urine Occult Blood Large H (NEGATIVE) Urine Nitrite Negative (NEGATIVE) Urine Bilirubin Negative (NEGATIVE) Urine Urobilinogen Normal (NEGATIVE) mg/dL Ur Leukocyte Esterase Negative (NEGATIVE) Urine RBC 75-100 H (0) Urine WBC 10-20 H (0) Ur Squamous Epith Cells Few H (NS,R,O) Urine Bacteria Moderate H (NS) Meds: Medications Discontinued Medications Generic Name Dose Route Start Last Admin Trade Name Freisabel PRN Reason Stop Dose Admin Albuterol 2.5 mg 10/14/17 10:55 10/14/17 11:10 Proventil Neb Soln NEB 10/14/17 10:56 2.5 mg ONETIME ONE Administration Furosemide 20 mg 10/14/17 13:13 Lasix IVPUSH 10/14/17 13:14 NOW ONE - Radiology Interpretation Free Text/Narrative:: CXR: NAD CT Chest w/o: interstitial edema, low-grade CHF - Re-Assessments/Exams Free Text/Narrative Re-Assessment/Exam: 10/14/17 13:20: Case discussed with Dr. Zee who agreed to admit to [facility] and will evaluate the patient in the ED. 10/14/17 13:30: Patient refused admission to [facility], instead requested admission to [facility]. Dr. Zee assumed care of the patient at this point and coordinated transfer to [facility]. Departure - Departure Time of Disposition: 13:30 Disposition: Still A Patient 30 Condition: Fair Clinical Impression: CHF (congestive heart failure), JO ANN (acute kidney injury) - Discharge Information Referrals: Tahir Bishop MD [Primary Care Provider] - Forms: ED Department Discharge - My Orders Last 24 Hours: My Active Orders 10/14/17 09:49 CXR [Chest 1V Frontal] [CR] Stat 10/14/17 09:51 EKG Documentation Completion [RC] ASDIRECTED EKG 12 Lead [EK] Stat 10/14/17 10:49 Blood Culture x2 Reflex Set [OM.PC] Urgent 10/14/17 10:53 Chest wo Cont [CT] Stat 10/14/17 10:55 RT Aerosol Therapy [RC] ASDIRECTED 10/14/17 11:01 UA W/MICROSCOPIC [URIN] Stat 10/14/17 11:15 CULTURE BLOOD [BC] Urgent 10/14/17 11:20 CULTURE BLOOD [BC] Urgent - Assessment/Plan Last 24 Hours: My Active Orders 10/14/17 09:49 CXR [Chest 1V Frontal] [CR] Stat 10/14/17 09:51 EKG Documentation Completion [RC] ASDIRECTED EKG 12 Lead [EK] Stat 10/14/17 10:49 Blood Culture x2 Reflex Set [OM.PC] Urgent 10/14/17 10:53 Chest wo Cont [CT] Stat 10/14/17 10:55 RT Aerosol Therapy [RC] ASDIRECTED 10/14/17 11:01 UA W/MICROSCOPIC [URIN] Stat 10/14/17 11:15 CULTURE BLOOD [BC] Urgent 10/14/17 11:20 CULTURE BLOOD [BC] Urgent
[2017-10-14] MEDS: Albuterol 0.083% 2.5 MG/3 ML Neb Soln NEB ONE (11:10)
[2017-10-14] MEDS: Furosemide 40 MG/4 ML VIAL IVPUSH ONE (14:17)
[2017-10-14 14:20] VITALS: BP 123/73
--- NOTE | 2017-10-14 14:29 | PCM.HP ---
H&P History of Present Illness - General Date of Service: 10/14/17 Admit Problem/Dx: CHF with renal insufficiency and worsening renal function. Source of Information: Patient, Family, Old Records, Provider History Limitations: Reports: No Limitations - History of Present Illness Initial Comments - Free Text/Narative: Chief complaint: Shortness of breath History of present illness: The patient is a 67-year-old male with recently diagnosed bladder cancer who has been undergoing chemotherapy with cisplatin and gemcitabine through [facility] in [place]. Started on chemotherapy mid August and presented for admission to the hospital with hematuria and difficulty urinating as well as passing blood clots. He also developed acute kidney injury which was managed with IV fluids. Pancytopenia thought to be secondary to chemotherapy and was treated with antibiotics, packed red blood cells, and platelets. Was seen on the by hematology oncology as an outpatient for his urothelial carcinoma. At that time was found to have a potassium of 6 so was given 2 L of normal saline. Since that time the patient has had increasing shortness of breath. He felt dyspneic with exertion and today had some shortness of breath he could barely get out of the shower after he was done showering. He drove himself to the emergency department where he was evaluated. On ER evaluation he was found to have a potassium of 5.3, creatinine 2.1 which is an increase from his baseline 1.76 on the , and has been trending up over the last month, white count 12.6, platelets 460, hemoglobin 9.3, negative troponin, proBNP of 8000, chest CT which showed low-grade interstitial fluid and small bilateral pleural effusions consistent with congestive heart failure. The patient on arrival was 89% on room air but with rest came up to 100% room air and when I saw the patient his vital signs were stable with a blood pressure in the 120s over 80s, heart rate in the 70s, respiratory rate 18, O2 sats 100% on room air and able to speak without any dyspnea. Urinalysis showed large amount of blood, negative for leukocyte esterase, negative for nitrites. Did show bacteria, red blood cells, white blood cells, squamous epithelial cells. Past medical history: Recent diagnosis of bladder cancer undergoing chemotherapy with plan for surgical resection once chemotherapy is complete. Recent history of acute kidney injury with worsening creatinine. History of coronary artery disease with ischemic cardiomyopathy, myocardial infarction and cardiac arrest with resuscitation, coronary artery bypass grafting 2. Diabetes mellitus type 2. Hyperlipidemia. Obesity. Tobacco use disorder currently still smoking about a pack of cigarettes a day. Anxiety. - Related Data Allergies/Adverse Reactions: Allergies Allergy/AdvReac Type Severity Reaction Status Date / Time No Known Allergies Allergy Verified 10/14/17 09:42 Home Medications: Home Meds Carvedilol 25 mg PO BID 04/12/16 [History] Citalopram [Citalopram HBr] 40 mg PO DAILY 04/12/16 [History] atorvaSTATin [Lipitor] 20 mg PO DAILY 04/12/16 [History] glipiZIDE [Glipizide] 5 mg PO BIDMEALS 04/12/16 [History] metFORMIN [Glucophage] 500 mg PO BID 04/12/16 [History] Past Medical History HEENT History: Reports: Cataract, Impaired Vision Cardiovascular History: Reports: Bypass, CAD, High Cholesterol, Hypertension, [place] , Other (See Below) Other Cardiovascular History: states that he had 3 heart attacks, HTN, ischemic cardiomyopathy Respiratory History: Reports: None Gastrointestinal History: Reports: None Genitourinary History: Reports: Prostate Disorder, Renal Disease, Other (See Below) Other Genitourinary History: BLADDER CA Musculoskeletal History: Reports: Fracture Neurological History: Reports: None Psychiatric History: Reports: Anxiety Endocrine/Metabolic History: Reports: Diabetes, Type II, Obesity/BMI 30+ Hematologic History: Reports: None Immunologic History: Reports: None Oncologic (Cancer) History: Reports: Bladder, Prostate Dermatologic History: Reports: None - Past Surgical History Head Surgeries/Procedures: Reports: None HEENT Surgical History: Reports: Oral Surgery Other HEENT Surgeries/Procedures: WISDOM TEETH EXTRACTION Cardiovascular Surgical History: Reports: Coronary Artery Bypass Other Cardiovascular Surgeries/Procedures: CARDIAC CATH Respiratory Surgical History: Reports: None GI Surgical History: Reports: Colonoscopy Male Surgical History: Reports: Prostate Biopsy Endocrine Surgical History: Reports: None Neurological Surgical History: Reports: None Musculoskeletal Surgical History: Reports: None Oncologic Surgical History: Reports: Other (See Below) Other Oncologic Surgeries/Procedures: BLADDER TUMOR REMOVED. Dermatological Surgical History: Reports: None Social & Family History - Family History Family Medical History: Noncontributory - Tobacco Use Smoking Status *Q: Former Smoker Years of Tobacco use: 35 Packs/Tins Daily: 1 Used Tobacco, but Quit: Yes Month/Year Tobacco Last Used: 09/2017 Second Hand Smoke Exposure: No - Caffeine Use Caffeine Use: Reports: Soda Caffeine Use Comment: 2 cups per day - Alcohol Use Days Per Week of Alcohol Use: 1 Number of Drinks Per Day: 6 Total Drinks Per Week: 6 - Recreational Drug Use Recreational Drug Use: No H&P Review of Systems - Review of Systems: Review Of Systems: ROS reveals no pertinent complaints other than HPI. Exam - Exam Exam: See Below - Vital Signs Vital Signs: Last Vital Signs Temp 36.6 C 10/14/17 09:30 Pulse 83 10/14/17 09:30 Resp 22 H 10/14/17 09:30 BP 155/80 H 10/14/17 09:30 Pulse Ox 98 10/14/17 09:30 Weight: 123.547 kg - Exam General: Alert, Oriented, Cooperative HEENT: PERRLA Neck: Supple Lungs: Crackles (fine crackles bases bilaterally, otherwise clear.) Cardiovascular: Regular Rate, Regular Rhythm, Normal S1, Normal S2 GI/Abdominal Exam: Normal Bowel Sounds, Soft, Non-Tender, No Distention (Obese) Extremities: Pedal Edema (trace.) Neuro Extensive - Mental Status: Alert, Oriented x3, Normal Mood/Affect - Patient Data Lab Results Last 24 hrs: Laboratory Results - last 24 hr 10/14/17 10/14/17 10/14/17 Range/Units 10:05 10:05 10:05 WBC 12.6 H (4.5-12.0) X10-3/uL RBC 3.12 L (4.30-5.75) x10(6)uL Hgb 9.3 L (11.5-15.5) g/dL Hct 27.6 L (30.0-51.3) % MCV 88.4 (80-96) fL MCH 29.8 (27.7-33.6) pg MCHC 33.8 (32.2-35.4) g/dL RDW 15.2 (11.5-15.5) % Plt Count 460 H (125-369) X10(3)uL MPV 8.9 (7.4-10.4) fL Add Manual Diff Yes Neutrophils % (Manual) 90 H (46-82) % Lymphocytes % (Manual) 7 L (13-37) % Monocytes % (Manual) 3 L (4-12) % D-Dimer, Quantitative (100-400) ng/mL Sodium 142 (135-145) mmol/L Potassium 5.3 (3.5-5.3) mmol/L Chloride 108 (100-110) mmol/L Carbon Dioxide 24 (21-32) mmol/L BUN 53 H D (7-18) mg/dL Creatinine 2.1 H* (0.70-1.30) mg/dL Est Cr Clr Drug Dosing 34.28 mL/min Estimated GFR (MDRD) 31 L (>60) BUN/Creatinine Ratio 25.2 H (9-20) Glucose 100 D (80-116) mg/dL Lactic Acid (0.4-2.2) mmol/L Calcium 8.4 L (8.6-10.2) mg/dL Total Bilirubin 0.3 (0.1-1.3) mg/dL AST 13 (5-25) IU/L ALT 25 (12-36) U/L Alkaline Phosphatase 51 L (56-112) IU/L Troponin I < 0.017 L (<0.017-0.056) ng/mL NT-Pro-B Natriuret Pep 8007 H* (<=125) pg/mL Total Protein 6.7 (6.0-8.0) g/dL Albumin 3.3 (3.2-4.6) g/dL Globulin 3.4 g/dL Albumin/Globulin Ratio 1.0 Urine Color (YELLOW) Urine Appearance (CLEAR) Urine pH (5.0-6.5) Ur Specific [place] (1.010-1.025) Urine Protein (NEGATIVE) mg/dL Urine Glucose (UA) (NEGATIVE) mg/dL Urine Ketones (NEGATIVE) mg/dL Urine Occult Blood (NEGATIVE) Urine Nitrite (NEGATIVE) Urine Bilirubin (NEGATIVE) Urine Urobilinogen (NEGATIVE) mg/dL Ur Leukocyte Esterase (NEGATIVE) Urine RBC (0) Urine WBC (0) Ur Squamous Epith Cells (NS,R,O) Urine Bacteria (NS) 10/14/17 10/14/17 10/14/17 Range/Units 10:05 10:05 11:01 WBC (4.5-12.0) X10-3/uL RBC (4.30-5.75) x10(6)uL Hgb (11.5-15.5) g/dL Hct (30.0-51.3) % MCV (80-96) fL MCH (27.7-33.6) pg MCHC (32.2-35.4) g/dL RDW (11.5-15.5) % Plt Count (125-369) X10(3)uL MPV (7.4-10.4) fL Add Manual Diff Neutrophils % (Manual) (46-82) % Lymphocytes % (Manual) (13-37) % Monocytes % (Manual) (4-12) % D-Dimer, Quantitative 301 (100-400) ng/mL Sodium (135-145) mmol/L Potassium (3.5-5.3) mmol/L Chloride (100-110) mmol/L Carbon Dioxide (21-32) mmol/L BUN (7-18) mg/dL Creatinine (0.70-1.30) mg/dL Est Cr Clr Drug Dosing mL/min Estimated GFR (MDRD) (>60) BUN/Creatinine Ratio (9-20) Glucose (80-116) mg/dL Lactic Acid 1.0 (0.4-2.2) mmol/L Calcium (8.6-10.2) mg/dL Total Bilirubin (0.1-1.3) mg/dL AST (5-25) IU/L ALT (12-36) U/L Alkaline Phosphatase (56-112) IU/L Troponin I (<0.017-0.056) ng/mL NT-Pro-B Natriuret Pep (<=125) pg/mL Total Protein (6.0-8.0) g/dL Albumin (3.2-4.6) g/dL Globulin g/dL Albumin/Globulin Ratio Urine Color Yellow (YELLOW) Urine Appearance Slightly cloudy (CLEAR) Urine pH 5.0 (5.0-6.5) Ur Specific [place] 1.020 (1.010-1.025) Urine Protein Negative (NEGATIVE) mg/dL Urine Glucose (UA) Normal (NEGATIVE) mg/dL Urine Ketones Negative (NEGATIVE) mg/dL Urine Occult Blood Large H (NEGATIVE) Urine Nitrite Negative (NEGATIVE) Urine Bilirubin Negative (NEGATIVE) Urine Urobilinogen Normal (NEGATIVE) mg/dL Ur Leukocyte Esterase Negative (NEGATIVE) Urine RBC 75-100 H (0) Urine WBC 10-20 H (0) Ur Squamous Epith Cells Few H (NS,R,O) Urine Bacteria Moderate H (NS) Result Diagrams: 10/14/17 10:05 10/14/17 10:05 Problem List Initiated/Reviewed/Updated: Yes Orders Last 24hrs: Active Orders 24 hr Category Date Time Status EKG Documentation Completion [RC] ASDIRECTED Care 10/14/17 09:51 Active RT Aerosol Therapy [RC] ASDIRECTED Care 10/14/17 10:55 Active CXR [Chest 1V Frontal] [CR] Stat Exams 10/14/17 09:49 Taken Chest wo Cont [CT] Stat Exams 10/14/17 10:53 Taken CULTURE BLOOD [BC] Urgent Lab 10/14/17 11:15 Received CULTURE BLOOD [BC] Urgent Lab 10/14/17 11:20 Received UA W/MICROSCOPIC [URIN] Stat Lab 10/14/17 11:01 Ordered Blood Culture x2 Reflex Set [OM.PC] Urgent Oth 10/14/17 10:49 Ordered EKG 12 Lead [EK] Stat Ther 10/14/17 09:51 Ordered Assessment/Plan Comment:: 67-year-old male with complex medical history recently discharged from the hospital due to gross hematuria and renal failure/acute kidney injury who now presents with evidence of fluid overload. I feel the patient should be diuresed in the hospital as he shows both evidence of intravascular volume depletion and extravascular volume overload. Also has recently had issues with hyperkalemia and potassium should be monitored with diuretic therapy. Although he appears clinically stable at this time, he is at high risk for decompensation if attempts are made to treat him as an outpatient. Discussed this with the patient and his . They have requested to be admitted at [facility] as this is where they normally doctor and they would be able to be seen by their own usual team of providers. I feel this is reasonable. I contacted [facility] [address] call and spoke with Dr. Ruiz who agreed to accept the patient in transfer. The patient and his will be going by private car to [facility] for direct admission. Did discuss the risks and benefits of transfer at this point versus staying locally in order to have the care provided here. The patient and his feel that the benefits of being cared for by their usual team of providers outweighs the benefits of staying locally and avoiding transfer and risks inherent in transfer.
== END 2017-10-14 14:30 ==
LOC: FB.ED 09:29
DX: I11.0 Hypertensive heart disease with heart failure (principal); I50.9 Heart failure, unspecified; N17.9 Acute kidney failure, unspecified; I25.810 Atherosclerosis of coronary artery bypass graft(s) without angina pectoris; E78.00 Pure hypercholesterolemia, unspecified; I25.2 Old myocardial infarction; E11.9 Type 2 diabetes mellitus without complications; E66.9 Obesity, unspecified; Z87.891 Personal history of nicotine dependence; Z99.81 Dependence on supplemental oxygen; Z79.899 Other long term (current) drug therapy; Z79.84 Long term (current) use of oral hypoglycemic drugs; Z68.39 Body mass index [BMI] 39.0-39.9, adult
CPT/HCPCS: 36415; 71045; 71250; 80053; 81001; 83605; 83880; 84484; 85025; 85379; 87040; 93005; 93010; 94640; 99285